=== PATIENT | male | born 1950 | race Caucasian/White ===

== ENCOUNTER → 2020-03-25 | Outpatient (CLI) | payer OTHER ==
[2020-03-25 11:29] LABS: CREATININE 1.4 mg/dL (0.7-1.3)
== END ==
LOC: CAT 10:27 → LAB 10:27 → CAT 11:44
PROVIDERS: ATTEND Surgery Vascular Surgery
DX: I70.203 Unspecified atherosclerosis of native arteries of extremities, bilateral legs (principal); N28.9 Disorder of kidney and ureter, unspecified